=== PATIENT | female | born 1980 | race Caucasian/White ===

== ENCOUNTER 2017-08-03 09:20 | Day surgery (SDC) | payer OTHER ==
[2016-10-12 12:19] VITALS: BMI 29.8
--- NOTE | 2017-08-03 11:10 | CP.SDSHP ---
Same Day Surgery H & P - History Proposed Procedure: US guided FNA of neck lymph node Pre-Op Diagnosis: Cervical lymphadenopathy - Allergies Allergies: Allergies Penicillins Allergy (Verified 08/03/17 09:43) RASH - Physical Exam Vital Signs: Vital Signs 08/03/17 09:46 Temperature 97.7 F Pulse Rate 70 Respiratory 20 Rate Blood Pressure 109/73 O2 Sat by Pulse 98 Oximetry Mental Status: Alert & Oriented x3 - Impression Impression: Pt with bilateral cervical lymph nodes. Largest right node is 1.8 cm. This is palpable and Pt would like to have this node sampled. Plan US guided of right neck lymph node. Pt. Evaluated Today:Candidate for Anesthesia & Procedure: No - Date & Time Date: 08/03/17 Time: 10:50 Short Stay Discharge - Short Stay Discharge Admitting Diagnosis/Reason for Visit: ENLARGED LYMPH NODES, UNSPECIFIED Disposition: HOME/ ROUTINE
--- NOTE | 2017-08-03 11:12 | PCM.SURG1 ---
Surgeon's Initial Post Op Note - Surgeon's Notes Surgeon: Pavel Nava MD Research & Analytics Manager: NONE Type of Anesthesia: Local Pre-Operative Diagnosis: Lymphadenopathy Operative Findings: US showed bilateral lymph adenopathy Post-Operative Diagnosis: Lymphadenopathy Operation Performed: US guided FNA of right neck node. Specimen/Specimens Removed: 25 gauge FNA x 6 Estimated Blood Loss: EBL {In ML}: 0 Blood Products Given: N/A Drains Used: No Drains Post-Op Condition: Fair Date of Surgery/Procedure: 08/03/17 Time of Surgery/Procedure: 11:05
[2017-08-03 11:39] VITALS: BP 110/70; PULSE 80; RESP 18; TEMP 97; O2SAT 99
== END 2017-08-03 11:45 | disposition home or self-care (01) ==
LOC: C.SPRAD 09:20
PROVIDERS: ATTEND Radiology Vascular & Interventional Radiology
DX: R59.9 Enlarged lymph nodes, unspecified (principal)